=== PATIENT | male | born 1930 | race Caucasian/White ===

== ENCOUNTER 2016-06-25 20:15 | Observation (INO) | payer MEDICARE, SELFPAY ==
[2016-06-25] MEDS ORDERED: cloNIDine 0.1 MG Tab PO STA (21:10)
--- NOTE | 2016-06-25 21:19 | EDM.PDOC ---
ED HPI GENERAL MEDICAL PROBLEM - General Chief Complaint: General Stated Complaint: dizziness Time Seen by Provider: 06/25/16 20:45 Source of Information: Reports: Patient History Limitations: Reports: No limitations - History of Present Illness INITIAL COMMENTS - FREE TEXT/NARRATIVE: According to pt's son , he claims that he was not feeling well around 6 pm. He started to burp a lot and soon started to feel dizzy. Things started spinning around. Hence ambulance was called. Pt did have an episode of vomiting in the house, his blood pressure was elevated. No chest pain, shortness of breath. No weakness. No tingling or numbness , no headache. Pt appears comfortable in the exam room. - Related Data Allergies Allergy/AdvReac Type Severity Reaction Status Date / Time No Known Allergies Allergy Verified 12/26/14 21:22 Home Meds: Home Meds Aspirin 325 mg PO DAILY 12/08/13 [History] Diltiazem [Cardizem CD] 180 mg PO DAILY 12/08/13 [History] Social & Family History - Tobacco Use Smoking Status *Q: Never Smoker Second Hand Smoke Exposure: No - Alcohol Use Days Per Week of Alcohol Use: 1 Number of Drinks Per Day: 1 Total Drinks Per Week: 1 - Recreational Drug Use Recreational Drug Use: No ED ROS GENERAL - Review of Systems Review Of Systems: See Below Constitutional: Denies: fever, chills HEENT: Denies: Ear discharge, Ear pain, Rhinitis, Sinus problem Respiratory: Denies: Shortness of Breath, Cough, Sputum Cardiovascular: Denies: Chest pain, Lightheadedness Endocrine: Reports: fatigue GI/Abdominal: Denies: Abdominal pain, Nausea, Vomiting : Denies: dysuria, flank pain Musculoskeletal: Denies: neck pain, shoulder pain, joint pain, joint swelling Skin: Denies: bruising, pruritis, rash Neurological: Reports: Dizziness. Denies: Confusion, Headache, Paresthesia, Syncope, Tremors, Weakness, Gait Disturbance Psychiatric: Denies: Agitation, Anxiety, Confusion, Hallucinations ED EXAM, GENERAL - Physical Exam Exam: See Below Exam Limited By: No limitations General Appearance: alert, WD/WN, no apparent distress Eye Exam: bilateral eye: EOMI, PERRL Ears: normal external exam, normal canal, hearing grossly normal, normal TMs Ear Exam: bilateral ear: auricle normal, canal normal, TM normal Nose: normal inspection, normal mucosa, no blood Throat/Mouth: Normal inspection, Normal lips, Normal teeth, Normal gums, Normal oropharynx, Normal voice, No airway compromise Head: atraumatic, normocephalic Neck: normal inspection, supple, non-tender, full range of motion Respiratory/Chest: no respiratory distress, lungs clear, normal breath sounds, no accessory muscle use, chest non-tender Cardiovascular: normal peripheral pulses, regular rate, rhythm, no edema, no gallop, no JVD, no murmur, no rub Peripheral Pulses: 2+: radial (R), femoral (L) GI/Abdominal: normal bowel sounds, soft, non tender, no organomegaly, no distention, no abnormal bruit, no mass Extremities: normal inspection, normal range of motion, non-tender, normal capillary refill, no pedal edema Neurological: alert, oriented, CN II-XII intact, normal cognition, normal gait, normal reflexes, no motor/sensory deficits Skin Exam: Warm, Intact EKG INTERPRETATION EKG Date: 06/25/16 EKG Interpretation Comments: Pacemaker rhythm Course - Vital Signs Text/Narrative:: Pt's initial blood pressure in the emergency room was 192/68mmhg. his only complain was dizziness. His neuro exam is normal. He did receive clonidine 0.1mg po daily. he does have horizontal nystagmus and moving his head makes him dizzy. He did burp a few times in the exam room and settle down. he is comfortable and sleeping. He has been able to stand and there is no neurological deficit seen. His labs show slight elevation of white count at 14K. his CMP is normal. Troponin is negative. Plan is to admit patient for observation, his BP is coming down. Will repeat his CBC in Am. His elevated white count could be from his wretching and vomiting he had at home. Will reevaluate in AM. Last Recorded V/S: Last Vital Signs Temp 98.7 F 06/25/16 20:55 Pulse 53 L 06/25/16 20:55 Resp 12 06/25/16 20:55 BP 137/78 06/25/16 20:55 Pulse Ox - Orders/Labs/Meds Orders: Active Orders 24 hr Category Date Time Status EKG Documentation Completion [RC] ASDIRECTED Care 06/25/16 21:06 Active TROPONIN I [CHEM] Stat Lab 06/25/16 21:05 Ordered Labs: Laboratory Tests 06/25/16 06/25/16 Range/Units 21:20 21:20 WBC 14.5 H (4.0-11.0) K/uL RBC 4.77 (4.50-6.50) M/uL Hgb 13.4 (13.0-18.0) g/dL Hct 40.0 (40.0-54.0) % MCV 84 (76-96) fL MCH 28.1 (27.0-32.0) pg MCHC 33.5 (31.0-35.0) g/dL RDW 14.6 (11.0-16.0) % Plt Count 353 (150-400) K/uL MPV 9.4 (6.0-10.0) fL Neut % (Auto) 87.4 H (45.0-70.0) % Lymph % (Auto) 7.3 L (20.0-40.0) % [place] % (Auto) 4.5 (3.0-10.0) % Eos % (Auto) 0.5 L (1.0-5.0) % Baso % (Auto) 0.3 (0.0-0.5) % Neut # (Auto) 12.64 H (2.00-7.50) K/uL Lymph # (Auto) 1.05 L (1.50-4.00) K/uL [place] # (Auto) 0.65 (0.20-0.80) K/uL Eos # (Auto) 0.07 (0.04-0.40) K/uL Baso # (Auto) 0.05 (0.02-0.10) K/uL Sodium 136 (136-145) mmol/L Potassium 4.0 (3.5-5.1) mmol/L Chloride 101 (98-107) mmol/L Carbon Dioxide 24.7 (21.0-32.0) mmol/L Anion Gap 14.3 (5.0-15.0) mmol/L BUN 22 (8-26) mg/dL Creatinine 1.18 (0.70-1.30) mg/dL Est Cr Clr Drug Dosing TNP Estimated GFR (MDRD) 58 L (>60) MLS/MIN BUN/Creatinine Ratio 18.6 (6-25) Glucose 193 H D (74-100) mg/dL Calcium 8.0 L (8.5-10.1) mg/dL Total Bilirubin 0.5 (0.0-1.0) mg/dL AST 17 (15-37) U/L ALT 17 (12-78) U/L Alkaline Phosphatase 102 (46-116) U/L Total Protein 7.4 (6.4-8.2) g/dL Albumin 3.5 (3.4-5.0) g/dL Globulin 3.9 (2.2-4.2) g/dL Albumin/Globulin Ratio 0.9 (0.8-2.0) Meds: Medications Discontinued Medications Generic Name Dose Route Start Last Admin Trade Name Faizan PRN Reason Stop Dose Admin Clonidine HCl 0.1 mg 06/25/16 21:10 Catapres PO 06/25/16 21:11 DAILY STA Departure - Departure Time of Disposition: 21:45 Disposition: Refer to Observation Condition: fair Clinical Impression: Vertigo, Elevated blood pressure reading Forms: ED Department Discharge - Problem List & Annotations (1) Elevated blood pressure reading SNOMED Code(s): 55112231 Code(s): R03.0 - ELEVATED BLOOD-PRESSURE READING, W/O DIAGNOSIS OF HTN Status: Acute (2) Vertigo SNOMED Code(s): 600042466 Code(s): R42 - DIZZINESS AND GIDDINESS Status: Acute - Problem List Review Problem List Initiated/Reviewed/Updated: Yes - My Orders Last 24 Hours: My Active Orders 06/25/16 21:05 TROPONIN I [CHEM] Stat 06/25/16 21:06 EKG Documentation Completion [RC] ASDIRECTED - Assessment/Plan Admission H&P: Please use this note as an admission H&P Last 24 Hours: My Active Orders 06/25/16 21:05 TROPONIN I [CHEM] Stat 06/25/16 21:06 EKG Documentation Completion [RC] ASDIRECTED Assessment:: Vertigo with elevated blood pressure Plan: Pt's initial blood pressure in the emergency room was 192/68mmhg. his only complain was dizziness. His neuro exam is normal. He did receive clonidine 0.1mg po daily. he does have horizontal nystagmus and moving his head makes him dizzy. He did burp a few times in the exam room and settle down. he is comfortable and sleeping. He has been able to stand and there is no neurological deficit seen. His labs show slight elevation of white count at 14K. his CMP is normal. Troponin is negative. Plan is to admit patient for observation, his BP is coming down. Will repeat his CBC in Am. His elevated white count could be from his wretching and vomiting he had at home. Will reevaluate in AM.
[2016-06-26] MEDS ORDERED: Diltiazem 180 MG Cap.CD PO SCH (08:00)
[2016-06-26] MEDS ORDERED: Non-Formulary Medication 1 Each (Aspirin [Aspirin] 325 MG) PO SCH (08:00)
--- NOTE | 2016-06-26 09:57 | PCM.DCSUM1 ---
Discharge Summary - Hospital Course Free Text/Narrative:: Pt was admitted for observation for dizziness. His Blood pressure in the emergency room was elevated at 192/98mmhg. His workup ws negative for acute cardiovascular or cerebrovascular injury. he did recieve clonidine 0.1mg and his blood pressure did gradually improve. he still has mild dizziness, hence was admitted for monitoring his blood pressure and his symptoms. He has had uneventful night. His blood today morning is 157/84mmhg. His dizziness has completely resolved. he is able to stand up and ambulate with a walker, without feeling dizzy. Vitals are stable. Also his white count is down from 14.9 to 9.5. He has not had any new symptoms develop during his hospital stay. Hence patient was planned for discharge. 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 Advied to monitor his blood pressure closely. If he continue to have elevated BP above 160/90mmhg, will need to followup in the clinic for medication adjustment. Brief History: Pt was brought in by ambulance last night for dizziness. His BP was elevated aroun 192/98mmhg. CLincial exam was normal other than vertigo. Pt was admitted to monitor his blood pressure overnight. - Discharge Data Discharge Date: 06/26/16 Discharge Disposition: Home, Self-Care 01 Condition: Good - Discharge Diagnosis/Problem(s) (1) Elevated blood pressure reading SNOMED Code(s): 61219271 ICD Code: R03.0 - ELEVATED BLOOD-PRESSURE READING, W/O DIAGNOSIS OF HTN Status: Acute Current Visit: Yes (2) Vertigo SNOMED Code(s): 078785982 ICD Code: R42 - DIZZINESS AND GIDDINESS Status: Acute Current Visit: Yes - Patient Instructions Diet: Heart Healthy Diet Activity: As Tolerated Showering/Bathing: May Shower - Discharge Plan Prescriptions/Med Rec: Omeprazole 20 mg PO DAILY #30 cap.cr Home Medications: Home Meds Aspirin 325 mg PO DAILY 12/08/13 [History] Diltiazem [Cardizem CD] 180 mg PO DAILY 12/08/13 [History] Omeprazole 20 mg PO DAILY #30 cap.cr 06/26/16 [Rx] Forms: ED Department Discharge Referrals: PCP,None [Primary Care Provider] - - Discharge Summary/Plan Comment DC Time >30 min.: Yes Discharge Summary/Plan Comment: Pt advised to rest and continue his home medication. Ambulate as tolerated. Have started him on omeprazole 20mg daily for burping and belching. Followup in clinic next week for recheck. - General Info Date of Service: 06/26/16 - Review of Systems General: Denies: Fever, Weakness HEENT: Denies: contact lenses, headaches, sinus congestion Pulmonary: Denies: shortness of breath, hemoptysis, wheezing Cardiovascular: Denies: Chest Pain, Palpitations, Lightheadedness Gastrointestinal: Denies: Abdominal pain, Flatus, Nausea, Vomiting Genitourinary: Denies: frequency, burning Musculoskeletal: Denies: shoulder pain, arm pain Skin: Denies: pruritis, rash Neurological: Denies: Confusion, Dizziness, Difficulty Walking, Weakness Psychiatric: Denies: confusion, depression - Patient Data Vitals - Most Recent: Last Vital Signs Temp 98.7 F 06/25/16 20:55 Pulse 60 06/25/16 21:56 Resp 18 06/26/16 01:25 BP 164/52 H 06/25/16 21:56 Pulse Ox 97 06/25/16 21:56 Weight - Most Recent: 87.09 kg Lab Results - Last 24 hrs: Laboratory Results - last 24 hr 06/26/16 Range/Units 08:00 WBC 9.5 D (4.0-11.0) K/uL RBC 4.64 (4.50-6.50) M/uL Hgb 13.0 (13.0-18.0) g/dL Hct 38.7 L (40.0-54.0) % MCV 83 (76-96) fL MCH 28.0 (27.0-32.0) pg MCHC 33.6 (31.0-35.0) g/dL RDW 14.3 (11.0-16.0) % Plt Count 336 (150-400) K/uL MPV 9.2 (6.0-10.0) fL Neut % (Auto) 77.3 H (45.0-70.0) % Lymph % (Auto) 15.2 L (20.0-40.0) % [place] % (Auto) 6.6 (3.0-10.0) % Eos % (Auto) 0.6 L (1.0-5.0) % Baso % (Auto) 0.3 (0.0-0.5) % Neut # (Auto) 7.36 (2.00-7.50) K/uL Lymph # (Auto) 1.45 L (1.50-4.00) K/uL [place] # (Auto) 0.63 (0.20-0.80) K/uL Eos # (Auto) 0.06 (0.04-0.40) K/uL Baso # (Auto) 0.03 (0.02-0.10) K/uL Med Orders - Current: Current Medications Diltiazem HCl (Cardizem Cd) 180 mg PO DAILY MAURIZIO Non-Formulary Medication (Aspirin [Aspirin]) 325 mg PO DAILY MAURIZIO Discontinued Medications Clonidine HCl (Catapres) 0.1 mg PO DAILY STA Stop: 06/25/16 21:11 Last Admin: 06/25/16 21:10 Dose: 0.1 mg - Exam General: Reports: alert, oriented, cooperative HEENT: Reports: Pupils equal, Pupils reactive, EOMI, Mucous membr. moist/pink Neck: Reports: supple Lungs: Reports: Clear to auscultation, Normal respiratory effort Cardiovascular: Reports: Regular Rate, Regular Rhythm Abdomen: Reports: bowel sounds present, soft, no tenderness, no distension (Male) Exam: No hernia, Normal inspection, Normal prostate, Circumcised Rectal (Males) Exam: Normal exam, Normal rectal tone, Prostate normal Extremities: Reports: no edema, normal pulses Skin: Reports: warm, dry, intact Neurological: Reports: no new focal deficit *Q Meaningful Use (DIS) - VTE *Q VTE Criteria *Q: - Stroke *Q Stroke Criteria *Q: - AMI *Q AMI Criteria *Q:
[2016-06-26] MEDS ORDERED: Omeprazole 20 MG Cap.CR ONE (10:00)
[2016-06-26 11:00] VITALS: BP 150/87
== END 2016-06-26 10:30 | disposition home or self-care (01) ==
LOC: LB.ED 20:15 → LB.MS 21:35 → UNDOADMOB 21:35 → LB.MS 21:56
PROVIDERS: ADMIT Family Medicine; ATTEND Family Medicine
DX: R03.0 Elevated blood-pressure reading, without diagnosis of hypertension (principal); R42 Dizziness and giddiness; Z79.82 Long term (current) use of aspirin; Z79.899 Other long term (current) drug therapy
CPT/HCPCS: 36415; 80053; 84484; 85025; 93005; 99217; 99219; 99284; A0425; A0429; A9270; G0378

== ENCOUNTER 2017-11-26 16:02 | Emergency (ER) | payer MEDICARE, OTHER, SELFPAY ==
--- NOTE | 2017-11-26 16:26 | EDM.PDOC ---
ED HPI GENERAL MEDICAL PROBLEM - General Chief Complaint: General Stated Complaint: shortness of breath Time Seen by Provider: 11/26/17 16:10 Source of Information: Reports: Patient, Family History Limitations: Reports: No Limitations - History of Present Illness INITIAL COMMENTS - FREE TEXT/NARRATIVE: Pt is a 87 year old male with HTN, Hiatal hernia and pacemaker. Apparently pt claims that he had episode of cough with shortness of breath at 1:30 PM today which went away on its own. So, he called his son to have him taken to the hospital to be checked. Presently in the emergency room, patient has no complaints. No cough, wheezing, chest pain or chest tightness. He feels fine, wants to be checked to make sure he does not have pneumonia.Pt's SPO2 is 99% of room air, and does not appear to be in any distress. Son who is here agree that his father looks fine and not having any symptoms now. Onset: Today Onset Date: 11/26/17 Onset Time: 01:30 Duration: Other (symptoms resolved) Improves with: Reports: None Worsens with: Reports: None Associated Symptoms: Denies: Confusion, Chest Pain, Cough, Diaphoresis, Fever/ Chills, Headaches, Rash, Seizure, Shortness of Breath, Syncope, Weakness - Related Data Allergies Allergy/AdvReac Type Severity Reaction Status Date / Time No Known Allergies Allergy Verified 12/01/17 13:02 Home Meds: Home Meds Aspirin 325 mg PO DAILY 12/08/13 [History] Diltiazem HCl [Diltiazem ER] 120 mg PO DAILY 12/01/17 [History] Furosemide 20 mg PO DAILY 12/01/17 [History] Past Medical History HEENT History: Reports: Hard of Hearing, Impaired Vision Cardiovascular History: Reports: Hypertension, Pacemaker - Past Surgical History Musculoskeletal Surgical History: Reports: Arthroscopic Knee, Other (See Below) Social & Family History - Family History Family Medical History: Noncontributory - Caffeine Use Caffeine Use: Reports: None ED ROS GENERAL - Review of Systems Review Of Systems: See Below Constitutional: Reports: Other (presently asymtpomatic and feels fine). Denies : Fever, Chills, Malaise HEENT: Denies: Rhinitis, Sinus Problem, Throat Pain, Throat Swelling Respiratory: Denies: Shortness of Breath, Wheezing, Pleuritic Chest Pain, Cough , Sputum Cardiovascular: Denies: Chest Pain, Lightheadedness Endocrine: Denies: Fatigue GI/Abdominal: Denies: Abdominal Pain, Nausea, Vomiting : Denies: Dysuria, Flank Pain Musculoskeletal: Denies: Joint Pain, Joint Swelling Skin: Denies: Pruritis, Rash, Erythema Neurological: Denies: Dizziness, Headache, Seizure, Syncope, Weakness, Gait Disturbance Psychiatric: Denies: Agitation, Anxiety, Confusion Hematologic/Lymphatic: Denies: Anemia, Easy Bleeding ED EXAM, GENERAL - Physical Exam Exam: See Below Exam Limited By: No Limitations General Appearance: Alert, WD/WN, No Apparent Distress Eye Exam: Bilateral Eye: EOMI, PERRL Ears: Normal External Exam, Normal Canal, Hearing Grossly Normal, Normal TMs Ear Exam: Bilateral Ear: Auricle Normal, Canal Normal, TM normal Nose: Normal Inspection, Normal Mucosa, No Blood Throat/Mouth: Normal Inspection, Normal Lips, Normal Teeth, Normal Gums, Normal Oropharynx, Normal Voice, No Airway Compromise Head: Atraumatic, Normocephalic Neck: Normal Inspection, Supple, Non-Tender, Full Range of Motion Respiratory/Chest: No Respiratory Distress, Lungs Clear, Normal Breath Sounds, No Accessory Muscle Use, Chest Non-Tender Cardiovascular: Normal Peripheral Pulses, Regular Rate, Rhythm, No Edema, No Gallop, No JVD, No Murmur, No Rub GI/Abdominal: Normal Bowel Sounds, Soft, Non-Tender, No Organomegaly, No Distention, No Abnormal Bruit, No Mass Back Exam: Other (khyphosis). No: CVA Tenderness (R), CVA Tenderness (L), Paraspinal Tenderness, Vertebral Tenderness Neurological: Alert, Oriented, CN II-XII Intact, Normal Cognition, Normal Gait, Normal Reflexes, No Motor/Sensory Deficits Psychiatric: Normal Affect, Normal Mood Skin Exam: Warm, Intact Course - Vital Signs Text/Narrative:: Pt is not having any symptoms now. His SPO2 is 99% on room air. His pulse is 70/ min with BP of 120/70mmhg. He does have haital hernia, which might have caused his episode of cough with shortness or breath feeling which resolved with in few minutes. Considering his symptom of transient cough, will get CBC and Chest x-ray and make sure he does not have aspiration pneumonia or any acute chest issue. This does not appear cardiac as the symptoms was very transient and has not reoccurred since 1:30PM. There no other constitutional or systemic symptoms since 1:30Pm, and patient has been feeling fine. - Orders/Labs/Meds Labs: Laboratory Tests 11/26/17 Range/Units 16:25 WBC 8.5 (4.0-11.0) K/uL RBC 4.35 L (4.50-6.50) M/uL Hgb 12.4 L (13.0-18.0) g/dL Hct 37.2 L (40.0-54.0) % MCV 86 (76-96) fL MCH 28.5 (27.0-32.0) pg MCHC 33.3 (31.0-35.0) g/dL RDW 15.0 (11.0-16.0) % Plt Count 325 (150-400) K/uL MPV 9.9 (6.0-10.0) fL Neut % (Auto) 71.0 H (45.0-70.0) % Lymph % (Auto) 16.8 L (20.0-40.0) % [place] % (Auto) 9.6 (3.0-10.0) % Eos % (Auto) 2.1 (1.0-5.0) % Baso % (Auto) 0.5 (0.0-0.5) % Neut # (Auto) 6.02 (2.00-7.50) K/uL Lymph # (Auto) 1.42 L (1.50-4.00) K/uL [place] # (Auto) 0.81 H (0.20-0.80) K/uL Eos # (Auto) 0.18 (0.04-0.40) K/uL Baso # (Auto) 0.04 (0.02-0.10) K/uL Departure - Departure Time of Disposition: 16:55 Disposition: Home, Self-Care 01 Condition: Fair Clinical Impression: Cough - Discharge Information *PRESCRIPTION DRUG MONITORING PROGRAM REVIEWED*: Not Applicable *COPY OF PRESCRIPTION DRUG MONITORING REPORT IN PATIENT JOS: Not Applicable Referrals: PCP,None [Primary Care Provider] - Forms: ED Department Discharge - Problem List & Annotations (1) Cough SNOMED Code(s): 00883793 Code(s): R05 - COUGH Status: Acute - Problem List Review Problem List Initiated/Reviewed/Updated: Yes - Assessment/Plan Assessment:: cough Plan: Pt labs are stable. Had coughing spell at home. Presently not having cough. Chest Xray normal. Family and patient reassured. Followup in clinic if cough persists
--- NOTE | 2017-11-28 01:21 | CR ---
DATE OF SERVICE: 11/26/2017 CLINICAL DATA: Cough. AP AND LATERAL CHEST: There is a cardiac pacer overlying the left chest and the distal pacer wires are in the region of the right atrium and right ventricle. The heart is grossly enlarged. There is calcification of the aortic arch. The lungs appear clear. No pneumothorax. No pleural effusions. [id number] [facility]
== END 2017-11-26 16:55 | disposition home or self-care (01) ==
LOC: LB.ED 16:02
DX: R05 Cough (principal); R06.02 Shortness of breath; I10 Essential (primary) hypertension; K44.9 Diaphragmatic hernia without obstruction or gangrene; Z79.82 Long term (current) use of aspirin; Z79.899 Other long term (current) drug therapy
CPT/HCPCS: 36415; 71046; 85025; 99285

== ENCOUNTER 2017-12-01 10:12 | Observation (INO) | payer MEDICARE ==
[2017-12-01] MEDS ORDERED: Sodium Chloride 0.9% 10 ML Syringe FLUSH PRN (10:50)
[2017-12-01] MEDS ORDERED: Iodixanol 652 MG/ML 100 ML Bottle IV PRN (10:50)
[2017-12-01] MEDS ORDERED: Sodium Chloride 0.9% 50 ML SDV FLUSH SCH (11:00)
[2017-12-01] MEDS ORDERED: Furosemide 40 MG Tab PO PRN (14:00)
[2017-12-01] MEDS ORDERED: Furosemide 40 MG/4 ML VIAL IVPUSH SCH (14:15)
--- NOTE | 2017-12-01 16:30 | CT ---
CLINICAL DATA: Shortness of breath. ENHANCED CHEST CT, 01 DECEMBER 2017: Multislice acquisition through the chest with IV contrast was performed. No priors. No evidence of PE. No pneumothorax. There are small bilateral pleural effusions, right greater than left. 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 It measures 4.5 cm in diameter. The heart is grossly enlarged. There are coronary artery calcifications. There is a small pericardial effusion. There is mild pleural thickening in both hemithoraces. There is a calcified pleural plaque in the right upper lung. This may be related to prior asbestos exposure. There are mild atelectatic changes in the dependent portion of the right lung. The lungs are otherwise clear. No areas of consolidation. No hilar or mediastinal adenopathy. There is a cardiac pacer and pacer wires in place. No other significant findings. ENHANCED ABDOMEN AND PELVIS CT, 01 DECEMBER 2017: Multislice acquisition through the abdomen and pelvis with IV contrast was performed. There is mild diffuse fatty infiltration of the liver. No focal hepatic lesions. There is a small amount of pericholecystic fluid suggesting cholecystitis. I do not see any definite gallstones. Gallbladder ultrasound is recommended. There is a small hiatal hernia. There are calcifications within the spleen consistent with prior granulomatous disease. The spleen otherwise appears normal. The pancreas is significantly atrophic. It is otherwise unremarkable in appearance. The right and left adrenals appear normal. There is atrophy of both kidneys. No hydronephrosis or hydroureter. The bladder is partially fluid-filled. It appears normal. No evidence of appendicitis. There is mild diverticulosis of the descending and sigmoid colon. No evidence of diverticulitis. There is a small amount of free fluid within the pelvis. There is a large fat- containing umbilical hernia. No dilated loops of bowel. No adenopathy. No aortic aneurysm or dissection. IMPRESSION: Multiple abnormalities as discussed above. Job: [id number] [facility]
[2017-12-01] MEDS ORDERED: Sodium Chloride 0.9% 1,000 ML IV SCH (17:15)
[2017-12-01 18:32] VITALS: BP 129/72
--- NOTE | 2017-12-01 22:13 | HP ---
HISTORY OF PRESENT ILLNESS: This is an 87-year-old male who was admitted to observation for episodes of shortness of breath, weakness, and some CHF issues. The patient has been dealing with episodes of shortness of breath for the last several days. It seems like it is slowly getting worse. He has been seen initially here in the emergency room as well as in the [facility] early this week, and he is back here today with his son for followup. His son feels that his symptoms are slowly getting worse. The patient will have these episodes of shortness of breath that will last for a couple of minutes, maybe longer and then seems to go away. He is not having any pain. He is not complaining of any nausea or vomiting and no problems with diarrhea. PAST MEDICAL HISTORY: Includes: 1. Hypertension. 2. Severe cardiomegaly. 3. Hiatal hernia. 4. History of pacemaker placed in 2013. 5. History of right hip fracture. 6. He also has history of multiple fractures that were caused by his heart stopping. His son tells me this is when he got the pacemaker. The fractures include skull fracture, shoulder fracture, arm fracture, rib fractures. SURGICAL HISTORY: Includes: 1. Hip fracture repair. 2. Appendectomy. 3. Knee replacement. 4. Vasectomy. SOCIAL HISTORY: The patient has been for 5 years. He is a father of 7 children. He has lived in the [facility] with his oldest son for 5 years. They are from the [facility] previous to this. CURRENT MEDICATIONS: Include diltiazem 180 mg a day, daily aspirin 325 mg and I started him on Lasix last Tuesday 20 mg a day. OBJECTIVE: GENERAL APPEARANCE: The patient is awake and alert. He is in no obvious respiratory distress at this time, although I have witnessed several times today where he will have mild shortness of breath for just a couple of minutes. VITAL SIGNS: Show a blood pressure of 118/78, O2 sats are 97% on room air, pulse 70, respirations 22, current weight of 188 pounds. NECK: Supple. LUNGS: Exam reveals reduced air exchange without rales, wheezes, or rhonchi. CARDIAC: Heart sounds are slightly muffled. I do not hear any murmurs. S1, S2 are present. ABDOMEN: Soft, protuberant, nontender. Bowel sounds are present. SKIN: Warm and dry. EXTREMITIES: There is mild lower extremity edema bilaterally. ASSESSMENT AND PLAN: I did consult with Dr. Davis regarding this patient's admission. He will be admitted for observation. He will be started on telemetry. We will increase his Lasix to 40 mg a day. We will order an echocardiogram. We will decrease the patient's diltiazem to 120 mg a day and start lisinopril at [address] Davis will assume care for this patient as of tomorrow. CRS/MODL
--- NOTE | 2017-12-02 03:35 | DISCH ---
This patient was admitted today through the clinic with complaints of shortness of breath that had been worsening slowly over the last few days. Diagnosis initially is CHF. Labs done today while after being admitted reveals his BNP has significantly climbed. It is now over 30,000, it was 1700 when taken on Tuesday. Kidney function is also affected. BUN is 66 as compared to 33 on Tuesday. Creatinine is 1.9, it was 1.2 on Tuesday. GFR has also dropped about 20 points. At this point, I consulted with Dr. Schrader, hospitalist, at [facility] in [place], and he accepted the patient. Arrangements have been made for the patient to be transferred by [facility]. DIAGNOSES: 1. Acute exacerbation of congestive heart failure. 2. Kidney failure, acute. CRS/MODL /[id number]
[2017-12-02] MEDS ORDERED: CARTIA XT 120 MG PO SCH (08:00)
[2017-12-02] MEDS ORDERED: ASPIRIN 325 MG PO SCH (08:00)
[2017-12-02] MEDS ORDERED: Diltiazem 120 MG Cap.CD PO SCH (08:00)
== END 2017-12-01 18:34 ==
LOC: LB.CLINIC 10:12 → UNDOADMOB 12:33 → LB.MS 12:33
PROVIDERS: ADMIT Physician Assistant; ATTEND Physician Assistant
DX: I11.0 Hypertensive heart disease with heart failure (principal); I50.9 Heart failure, unspecified; N17.9 Acute kidney failure, unspecified; K44.9 Diaphragmatic hernia without obstruction or gangrene; K57.30 Diverticulosis of large intestine without perforation or abscess without bleeding; Z79.82 Long term (current) use of aspirin; Z79.899 Other long term (current) drug therapy
CPT/HCPCS: 36415; 51702; 71260; 74177; 80053; 83880; 85025; 93005; 96361; 96374; A0425; A0429; G0378; J1940; J7030; J7050